=== PATIENT | female | born 1980 | race Two or more races ===

== ENCOUNTER 2023-04-26 13:51 | Emergency (ER) | payer OTHER ==
[~2023-04-26] VITALS: Ht 162.6 cm; Wt 95.3 kg
[2023-04-26] MEDS ORDERED: ONDANSETRON ODT8 MG PO (19:22)
[2023-04-26] MEDS ORDERED: PEPCID AC20 MG PO (19:22)
== END 2023-04-26 19:38 | disposition home or self-care (01) ==
LOC: ER 13:51
DX: K52.9 Noninfective gastroenteritis and colitis, unspecified (principal); R11.2 Nausea with vomiting, unspecified; Z88.0 Allergy status to penicillin

== ENCOUNTER 2023-08-18 10:20 | Emergency (ER) | payer OTHER ==
[~2023-08-18] VITALS: Ht 162.6 cm; Wt 95.7 kg
[~2023-08-18 10:20] MED LIST: ONDANSETRON ODT8 MG PO; PEPCID AC20 MG PO
[2023-08-18 12:21] LABS: HEMATOCRIT 39.2 % (36.0-45.00); HEMOGLOBIN 12.6 g/dL (12.0-15.00); MEAN CELL VOLUME 85.2 fL (80.00-100.00); MEAN CORPUSCULAR HEMOGLOBIN 27.4 pg (27.00-32.0); MEAN CORPUSCULAR HGB CONC 32.2 g/dl (32.0-36.0); PLATELET COUNT 489 K/uL (150-450); RED BLOOD COUNT 4.61 M/uL (4.00-6.00); RED CELL DISTRIBUTION WIDTH 14.1 % (11.5-14.5)
[2023-08-18 12:24] LABS: ERYTHROCYTE SEDIMENTATION RATE 55 mm/hr
[2023-08-18 12:29] LABS: INR 1.01; PARTIAL THROMBOPLASTIN TIME 30.1 SECONDS (22.0-34.0); PROTHROMBIN TIME 10.6 SECONDS (9.0-11.5)
[2023-08-18 12:33] LABS: ALBUMIN 3.7 gm/dL (3.4-5.0); ALKALINE PHOSPHATASE 116 U/L (50-136); ALT/SGPT 41 U/L (12-78); ANION GAP 5 (10.0-20.0); AST/SGOT 22 U/L (15-37); BILIRUBIN TOTAL 0.25 mg/dL (0.3-1.2); BILIRUBIN,CONJUGATED < 0.10 mg/dL (0.0-0.2); BILIRUBIN,UNCONJUGATED 0.15 mg/dL (0.0-0.6); BLOOD UREA NITROGEN 13 mg/dL (7-18); BUN CREA RATIO 19 (7.0-25.0); CALCIUM 9.1 mg/dL (8.5-10.1); CARBON DIOXIDE 32 mEq/L (21-32); CHLORIDE 104 mmol/L (98-107); CREATININE SERUM 0.69 mg/dL (0.55-1.02); GFR 92.86; GLUCOSE FASTING 106 mg/dL (65-100); OSMOLALITY SERUM 274 MOSM/KG (275-295); POTASSIUM 3.53 mEq/L (3.5-5.1); SODIUM 137 mmol/L (136-145); TOTAL PROTEIN 8.7 gm/dL (6.4-8.2)
[2023-08-18 12:40] LABS: PH,URINE 7.5 (5.0-8.0); URINE APPEARANCE Clear; URINE BILIRRUBIN Negative (NEGATIVE); URINE BLOOD Moderate; URINE COLOR Yellow; URINE GLUCOSE Negative (NEGATIVE); URINE LEUKOCYTE Negative; URINE NITRATE Negative; URINE PROTEIN Negative (NEGATIVE); URINE UROBILINOGEN 0.2 E.U./dl
[2023-08-18 12:56] LABS: URINE BACTERIA 27.7 uL (0.0-1933); URINE RBC 124.2 uL (0.0-20.8); URINE WBC 2.6 uL (0.0-23.2)
[2023-08-18 13:45] LABS: URINE EPITHELIAL CELLS 0.9 uL (0.0-38.8)
== END 2023-08-18 17:33 | disposition home or self-care (01) ==
LOC: ER 10:20
PROVIDERS: General Practice
DX: D75.838 Other thrombocytosis (principal)